=== PATIENT | male | born 1985 | race Asian ===

== ENCOUNTER 2022-02-21 14:04 | Observation (INO) ==
[2022-02-21 14:23] LABS: Appearance Urine Clear (Clear); Bilirubin Urine Negative (Negative); Blood Urine Negative (Negative); Color Urine Yellow; Glucose Urine UA Negative (Negative); Ketones Urine 2+ (Negative); Leukocyte Esterase Urine Negative (Negative); Nitrite Urine Negative (Negative); Protein Urine Negative (Negative); Specific Gravity Urine 1.023 (1.000-1.030); Urobilinogen Urine Negative (Negative)
[2022-02-21 16:56] LABS: Basophils # (auto) 0.02 K/uL (0-0.2); Basophils % (auto) 0.3 %; Eosinophils # (auto) 0.01 K/uL (0-0.50); Eosinophils % (auto) 0.1 %; Hematocrit (blood only) 45.6 % (40.1-51.0); Hemoglobin 15.1 g/dl (14.0-18.0); Immature Granulocytes # (auto) 0.01 K/uL (0.00-0.02); Immature Granulocytes % (auto) 0.1 %; Lymphocytes # (auto) 1.93 K/uL (1.2-3.4); Lymphocytes % (auto) 25.5 %; Mean Corpuscular Hemoglobin 28.5 pg (25.0-34.0); Mean Corpuscular Hgb Conc 33.1 g/dL (32.0-36.0); Mean Corpuscular Volume 86.2 fL (80.0-100.0); Mean Platelet Volume 9.4 fL (9.4-12.4); Monocytes # (auto) 0.52 K/uL (0.24-0.82); Monocytes % (auto) 6.9 %; Neutrophils # (auto) 5.08 K/uL (1.4-6.5); Neutrophils % (auto) 67.1 %; Platelet Count 240 K/uL (130-400); RDW Coefficient of Variation 13.4 % (11.5-14.5); RDW Standard Deviation 42.3 fL (36.4-46.3); Red Blood Count 5.29 M/uL (4.63-6.08); White Blood Count 7.57 K/ul (4.8-10.8)
--- NOTE | 2022-02-21 17:08 | Emergency Department Note ---
Impression & Plan Right sided abdominal pain, Acute appendicitis, Fever ED Provider Note NAME: SABA CM AGE: 37 SEX: M : 1985 ARRIVES VIA: Walk-In INFORMANT: [Patient] ED PROVIDER(S): [Rajan Sotelo MD] CHIEF COMPLAINT: Abdominal pain HISTORY OF PRESENT ILLNESS: The patient is a 37-year-old male who presents to the ER with complaints of 3 days of right-sided abdominal pain. The pain has waxed and waned. The pain has been a 6 or 7 on a scale of 1-10. He has had some low-grade fever. He has been using Tylenol. He felt some numbness in his hands at 1 point and also some burning to urinate today. There has been no pain radiation. No cough or congestion. No abdominal trauma. He has never had any operations on his abdomen. REVIEW OF SYSTEMS: See HPI for pertinent positives and negatives. A total of ten systems were reviewed and were otherwise negative. PMHx/PSHx: See Below SOCIAL HISTORY: See Below. PHYSICAL EXAM: GENERAL: Patient is in no acute distress. HEENT: No acute trauma, normocephalic atraumatic, mucous membranes moist, no nasal congestion, no scleral icterus. NECK: No stridor, no adenopathy, no meningismus, trachea is midline. LUNGS: Clear to auscultation bilaterally, no wheeze, no rhonchi, breath sounds equal. HEART: Mildly tachycardic, regular rhythm, no murmurs. ABDOMEN: Soft, moderately tender in the right lower quadrant, bowel sounds positive. EXTREMITIES: No cyanosis or edema, full range of motion of all the joints without pain or difficulty, no signs for acute trauma. NEUROLOGIC: Oriented x 3, no acute motor or sensory deficits, no focal weakness. SKIN: No rash, no jaundice, no diaphoresis. Back: No flank discomfort to percussion. DIFFERENTIAL DIAGNOSIS: Appendicitis, testicular torsion, diverticulitis, UTI, obstruction, mesenteric ischemia, aortic pathology, inflammatory bowel disease, renal colic, PUD, pancreatitis, biliary pathology, hernia, volvulus, constipation, as well as other pathologies. EMERGENCY DEPARTMENT COURSE/PROCEDURES: MEDICAL DECISION MAKING: There is no leukocytosis or concerning anemia. There is a normal platelet count. Sodium slightly low at 134 but not in need of emergent correction. There was no renal failure. No concerning liver enzyme elevation. No pancreatitis. Urinalysis showed some ketones, no infection. COVID test returned negative. Abdominal and pelvis CT showed acute appendicitis without perforation. On exam, patient was tender in the right lower quadrant. The patient received IV saline, IV Toradol, IV Tylenol. I spoke with the patient about his findings. I spoke with case management. The on-call surgeon was consulted, Dr. Brito. The patient will likely undergo an appendectomy in the very near future. Past Med/Surg History Medical History Chronic back pain Hyperlipidemia Surgical History Ganglion cyst of wrist (~1997) H/O tooth extraction Family History Mother Hypertension Social History Smoking Status: Unknown if ever smoked Second Hand Exposure: No; Hx Alcohol Use: No Hx Substance Use: No Preferred Language: Chinese Communication Ability: Effective Visual Impairment: No Limitations Hearing Ability: Normal marital status: Current Living Situation: Spouse and Family current occupational status: employed Feels Safe at Home: Yes Childhood Exposure to Second-Hand Smoke: No caffeine: No Dental Care, Regularly: Yes Physical Activity Frequency: 3-4 Times per Week Physical Activity Frequency Comment: walk Seatbelt Use: always Sunscreen Use: Yes Do you think of yourself as: straight/heterosexual Allergies Allergies Allergy/AdvReac Type Severity Reaction Status Date / Time No Known Allergies Allergy Verified 02/21/22 19:01 Home Meds Home Medications Medication Instructions Recorded Confirmed Hair Loss Liquid 1 applic topical DIRECTED 02/21/22 02/21/22 Hair Loss Vitamin 1 tab PO DIRECTED 02/21/22 02/21/22 Results & Data (ED) Vital Signs Vital Signs - 24 hr 02/21/22 14:10 02/21/22 18:29 02/21/22 20:58 Temperature 38.6 C H 37 C Temperature Source Oral Oral Pulse Rate 123 H Pulse Rate [Right Finger] 99 H 78 Pulse Rhythm [Right Finger] Regular Pulse Strength [Right Finger] Normal Respiratory Rate 18 16 18 Respiratory Effort / Characteristics Non-Labored Non-Labored Spontaneous Respiratory Depth Normal Normal Respiratory Pattern Regular Blood Pressure 135/75 Blood Pressure [Right Arm] 125/80 125/86 Blood Pressure Mean 95 Blood Pressure Mean [Right Arm] 95 99 Blood Pressure Position [Right Arm] Sitting Pulse Oximetry 96 98 98 Oxygen Delivery Method Room Air Room Air Sepsis Recent Fever Within 48 Hours No Sepsis New/Unexplained Change in Mental Status N/A Sepsis Action Taken by Nursing No Action Required Home Medications Current Medication List: was personally reviewed by me Laboratory Data Attestation: I reviewed the patient's lab results. Result diagrams: 02/21/22 16:43 02/21/22 16:43 Lab Results 02/21/22 02/21/22 02/21/22 Range/Units 14:15 16:43 16:43 WBC 7.57 (4.8-10.8) K/ul RBC 5.29 (4.63-6.08) M/uL Hgb 15.1 (14.0-18.0) g/dl Hct 45.6 (40.1-51.0) % MCV 86.2 (80.0-100.0) fL MCH 28.5 (25.0-34.0) pg MCHC 33.1 (32.0-36.0) g/dL RDW Std Deviation 42.3 (36.4-46.3) fL RDW Coeff of Aby 13.4 (11.5-14.5) % Plt Count 240 (130-400) K/uL MPV 9.4 (9.4-12.4) fL Immature Gran % (Auto) 0.1 % Neut % (Auto) 67.1 % Lymph % (Auto) 25.5 % Park % (Auto) 6.9 % Eos % (Auto) 0.1 % Baso % (Auto) 0.3 % Neut # (Auto) 5.08 (1.4-6.5) K/uL Lymph # (Auto) 1.93 (1.2-3.4) K/uL Park # (Auto) 0.52 (0.24-0.82) K/uL Eos # (Auto) 0.01 (0-0.50) K/uL Baso # (Auto) 0.02 (0-0.2) K/uL Immature Gran # (Auto) 0.01 (0.00-0.02) K/uL Sodium 134 L (136-145) mmol/L Potassium 4.1 (3.5-5.1) mmol/L Chloride 99 (98-107) mmol/L Carbon Dioxide 27 (21-32) mmol/L Anion Gap 8 (3-11) BUN 11 (6-23) mg/dl Creatinine 1.07 (0.6-1.4) mg/dl Est Cr Clr Drug Dosing 107.4 ml/min Est GFR ( Amer) 103.0 ml/min Est GFR (Non-Af Amer) 88.8 ml/min BUN/Creatinine Ratio 10.3 (10-20) Glucose 91 (70-99(Fasting)) mg/dl Calcium 9.6 (8.5-10.1) mg/dl Total Bilirubin 0.5 (0.2-1.0) mg/dl AST 23 (13-39) U/L ALT 20 (7-52) U/L Alkaline Phosphatase 65 (34-104) U/L Total Protein 8.9 H (6.0-8.3) gm/dl Albumin 4.8 (3.4-5.0) gm/dl Globulin 4.1 H (2.5-4.0) gm/dl Albumin/Globulin Ratio 1.2 (0.9-2) Lipase 32 (11-82) U/L Urine Color Yellow Urine Appearance Clear (Clear) Urine pH 7.0 (4.5-7.5) Ur Specific [place] 1.023 (1.000-1.030) Urine Protein Negative (Negative) Urine Glucose (UA) Negative (Negative) Urine Ketones 2+ H (Negative) Urine Blood Negative (Negative) Urine Nitrite Negative (Negative) Urine Bilirubin Negative (Negative) Urine Urobilinogen Negative (Negative) Ur Leukocyte Esterase Negative (Negative) SARS-CoV-2, RNA, NAAT (NEGATIVE) 02/21/22 Range/Units 18:31 WBC (4.8-10.8) K/ul RBC (4.63-6.08) M/uL Hgb (14.0-18.0) g/dl Hct (40.1-51.0) % MCV (80.0-100.0) fL MCH (25.0-34.0) pg MCHC (32.0-36.0) g/dL RDW Std Deviation (36.4-46.3) fL RDW Coeff of Aby (11.5-14.5) % Plt Count (130-400) K/uL MPV (9.4-12.4) fL Immature Gran % (Auto) % Neut % (Auto) % Lymph % (Auto) % Park % (Auto) % Eos % (Auto) % Baso % (Auto) % Neut # (Auto) (1.4-6.5) K/uL Lymph # (Auto) (1.2-3.4) K/uL Park # (Auto) (0.24-0.82) K/uL Eos # (Auto) (0-0.50) K/uL Baso # (Auto) (0-0.2) K/uL Immature Gran # (Auto) (0.00-0.02) K/uL Sodium (136-145) mmol/L Potassium (3.5-5.1) mmol/L Chloride (98-107) mmol/L Carbon Dioxide (21-32) mmol/L Anion Gap (3-11) BUN (6-23) mg/dl Creatinine (0.6-1.4) mg/dl Est Cr Clr Drug Dosing ml/min Est GFR ( Amer) ml/min Est GFR (Non-Af Amer) ml/min BUN/Creatinine Ratio (10-20) Glucose (70-99(Fasting)) mg/dl Calcium (8.5-10.1) mg/dl Total Bilirubin (0.2-1.0) mg/dl AST (13-39) U/L ALT (7-52) U/L Alkaline Phosphatase (34-104) U/L Total Protein (6.0-8.3) gm/dl Albumin (3.4-5.0) gm/dl Globulin (2.5-4.0) gm/dl Albumin/Globulin Ratio (0.9-2) Lipase (11-82) U/L Urine Color Urine Appearance (Clear) Urine pH (4.5-7.5) Ur Specific [place] (1.000-1.030) Urine Protein (Negative) Urine Glucose (UA) (Negative) Urine Ketones (Negative) Urine Blood (Negative) Urine Nitrite (Negative) Urine Bilirubin (Negative) Urine Urobilinogen (Negative) Ur Leukocyte Esterase (Negative) SARS-CoV-2, RNA, NAAT NEGATIVE (NEGATIVE) Administered Medications Discontinued Medications Acetaminophen (Acetaminophen 1000 Mg/100 Ml Iv) 1,000 mg IV NOW STA Stop: 02/21/22 18:25 Last Admin: 02/21/22 18:35 Dose: 1,000 mg Documented By: GHASSAN Sodium Chloride (Nss 1000ml) 1,000 mls @ 999 mls/hr IV .Q1H1M ONE Stop: 02/21/22 18:35 Last Infusion: 02/21/22 18:58 Dose: 0 mls/hr Documented By: Admin: 02/21/22 18:05 Dose: 999 mls/hr Documented By: CRYSTALW Cefoxitin Sodium (Mefoxin) 2,000 mg in 60 mls @ 100 mls/hr IV NOW STA Stop: 02/21/22 19:39 Last Infusion: 02/21/22 20:42 Dose: 0 mls/hr Documented By: Admin: 02/21/22 19:49 Dose: 100 mls/hr Documented By: MACARIO Ioversol (Optiray 300 100ml) 87 ml IV ONCE ONE Stop: 02/21/22 17:53 Last Admin: 02/21/22 17:52 Dose: 87 ml Documented By: VALORIE Ketorolac Tromethamine (Ketorolac Tromethamine 15 Mg/Ml Vial) 15 mg IV NOW STA Stop: 02/21/22 17:54 Last Admin: 02/21/22 18:05 Dose: 15 mg Documented By: CRYSTALW Imaging Data Radiologist's Impression: Abdomen/Pelvis CT 02/21/22 15:[address] WITH IV CONTRAST CT DOSE: 394.61 mGy.cm HISTORY: Acute right lower quadrant abdominal pain R lower abd pain TECHNIQUE: Multiaxial CT images of the abdomen and pelvis were performed follow ing the IV administration of 87 cc of Optiray, A dose lowering technique was utilized adhering to the principles of ALARA. COMPARISON STUDY: None. FINDINGS: Imaged inferior cardiac chambers appear unremarkable. Subcentimeter calcified granulomata of the basal left lower lobe. There is no pneumatosis or pneumoperitoneum. The spleen, pancreas, contracted gallbladder and adrenal glands appear unremarkable. The liver is also within normal limits. Patency of the hepatic and portal veins. Unremarkable kidneys. No hydronephrosis. Prostate and partially decompressed urinary bladder are within normal limits. Aorta and IVC are within normal limits. There is no lymphadenopathy. No bowel obstruction. Trace free fluid within the dependent pelvis. The appendix is dilated measuring up to 1.3 cm transversely demonstrating wall thickening with mucosal hyperemia. Periappendiceal inflammation with small amount of right lower quadrant free fluid. No drainable fluid collection. No acute fracture. Moderate intervertebral disc space narrowing at L5-S1 with posterior disc ost eophyte complex. IMPRESSION: 1. Acute appendicitis with reactive free fluid within the abdominal right lower quadrant and dependent pelvis. 2. No pneumoperitoneum or drainable fluid collection. ACT 112: Negative or not required by law. The above report was generated using voice recognition software. It may contain grammatical, syntax or spelling errors. Electronically signed by: Edgardo Magallon M.D. 02/21/2022 6:11 PM Discharge Plan Visit Data Chief Complaint: Abdominal Pain Stated Complaint: R ABDOMINAL PAIN, FEVER, BURNING IN EXTREMETIES ED Provider: Rajan Sotelo Discharge Problem: Right sided abdominal pain, Acute appendicitis, Fever Patient Disposition: Admitted As Inpatient Condition: Fair Discharge Instructions Interventions: ED Discharge Assessment Last Done: 02/21/22 21:28 Forms Stand Alone Forms: Room 8 Studio Prescriptions Prescriptions: No Action Hair Loss Liquid 1 applic topical DIRECTED Hair Loss Vitamin 1 tab PO DIRECTED Referrals Referrals: Steven Akbar DO [Primary Care Provider] -
[2022-02-21 17:30] LABS: Albumin Globulin Ratio 1.2 (0.9-2); Albumin Level 4.8 gm/dl (3.4-5.0); BUN Creatinine Ratio 10.3 (10-20); Bilirubin,Total 0.5 mg/dl (0.2-1.0); Calcium 9.6 mg/dl (8.5-10.1); Creatinine Clr Calc Pharmacy 107.4 ml/min; Est GFR (Non-African American) 88.8 ml/min; Globulin 4.1 gm/dl (2.5-4.0); Potassium 4.1 mmol/L (3.5-5.1); Total Protein 8.9 gm/dl (6.0-8.3)
[2022-02-21] MEDS ORDERED: SODIUM CHLORIDE 0.9% 1000ML 1,000 ML IV ONE (17:35)
[2022-02-21] MEDS ORDERED: OPTIRAY 300 100mL IV ONE (17:52)
[2022-02-21] MEDS ORDERED: KETOROLAC TROMETHAMINE 15 MG/ML VIAL IV STA (17:53)
--- NOTE | 2022-02-21 18:12 | CT Scan Report ---
ABDOMEN AND PELVIS CT WITH IV CONTRAST CT DOSE: 394.61 mGy.cm HISTORY: Acute right lower quadrant abdominal pain R lower abd pain TECHNIQUE: Multiaxial CT images of the abdomen and pelvis were performed following the IV administrat ion of 87 cc of Optiray, A dose lowering technique was utilized adhering to the principles of ALARA. COMPARISON STUDY: None. FINDINGS: Imaged inferior cardiac chambers appear unremarkable. Subcentimeter calcified granulomata of the basa l left lower lobe. There is no pneumatosis or pneumoperitoneum. The spleen, pancreas, contracted gall bladder and adrenal glands appear unremarkable. The liver is also within normal limits. Patency of th e hepatic and portal veins. Unremarkable kidneys. No hydronephrosis. Prostate and partially decompressed urinary bladder are with in normal limits. Aorta and IVC are within normal limits. There is no lymphadenopathy. No bowel obstruction. Trace free fluid within the dependent pelvis. The appendix is dilated measuring up to 1.3 cm transversely demonstrating wall thickening with mucosal hyperemia. Periappendiceal infl ammation with small amount of right lower quadrant free fluid. No drainable fluid collection. No acut e fracture. Moderate intervertebral disc space narrowing at L5-S1 with posterior disc osteophyte comp jess. IMPRESSION: 1. Acute appendicitis with reactive free fluid within the abdominal right lower quadrant and dependen t pelvis. 2. No pneumoperitoneum or drainable fluid collection. ACT 112: Negative or not required by law. The above report was generated using voice recognition software. It may contain grammatical, syntax o r spelling errors. Electronically signed by: Edgardo Magallon M.D. 02/21/2022 6:11 PM
[2022-02-21] MEDS ORDERED: ACETAMINOPHEN 1000 MG/100 ML IV IV STA (18:24)
--- NOTE | 2022-02-21 18:56 | Surgery Consultation ---
Date of Consultation February 21, 2022 Assessment & Plan (1) Acute appendicitis: pt is a 37 year-old male who presents to ER with RLQ pain, IMP: acute appendicitis, plan, I recommend to do laparoscopic appendectomy, possible open, D/W benefits, risks and alternatives of the surgery, the risks - infection, bleeding, abscess, injury other organs, incisional hernia, pt understood, he agrees with surgery, he signed informed consent, I answered all questions, pre-op antibiotic, pt ate food at 2PM today, per-anesthesiologist wait other 4 hours, History of Present Illness Reason for Consultation: appendicitis Requesting Physician: Rajan Sotelo MD History of Present Illness CHIEF COMPLAINT: Abdominal pain HISTORY OF PRESENT ILLNESS: The patient is a 37-year-old male who presents to the ER with complaints of 3 days of right-sided abdominal pain. The pain has waxed and waned. The pain has been a 6 or 7 on a scale of 1-10. He has had some low-grade fever. He has been using Tylenol. He felt some numbness in his hands at 1 point and also some burning to urinate today. There has been no pain radiation. No cough or congestion. No abdominal trauma. He has never had any operations on his abdomen. I ( Johnnie Brito MD ) got a call consult acute appendicitis, I reviewed pt's H/P, labs, Ct scan with pt, pt is still have RLQ pain, REVIEW OF SYSTEMS: See HPI for pertinent positives and negatives. A total of ten systems were reviewed and were otherwise negative. PMHx/PSHx: See Below SOCIAL HISTORY: See Below. Allergies Allergy/AdvReac Type Severity Reaction Status Date / Time No Known Allergies Allergy Verified 02/21/22 19:01 Home Medications Medication Instructions Recorded Confirmed Type Hair Loss Liquid 1 applic topical DIRECTED 02/21/22 02/21/22 History Hair Loss Vitamin 1 tab PO DIRECTED 02/21/22 02/21/22 History Patient History Medical History (Updated 02/21/22 @ 19:00 by Johnnie Brito MD) Chronic back pain Hyperlipidemia Surgical History Ganglion cyst of wrist (~1997) H/O tooth extraction Family History Mother Hypertension Social History Smoking Status: Unknown if ever smoked Second Hand Exposure: No; Hx Alcohol Use: No Hx Substance Use: No Preferred Language: Khmer Communication Ability: Effective Visual Impairment: No Limitations Hearing Ability: Normal marital status: Current Living Situation: Spouse and Family current occupational status: employed Feels Safe at Home: Yes Childhood Exposure to Second-Hand Smoke: No caffeine: No Dental Care, Regularly: Yes Physical Activity Frequency: 3-4 Times per Week Physical Activity Frequency Comment: walk Seatbelt Use: always Sunscreen Use: Yes Do you think of yourself as: straight/heterosexual Review of Systems Constitutional: as per Subjective / HPI (obesity) Eyes: as per Subjective / HPI Respiratory: as per Subjective / HPI Cardiovascular: as per Subjective / HPI Additional Comments: hyperlipidemia Gastrointestinal: as per Subjective / HPI Genitourinary: + as per Subjective / HPI Musculoskeletal: chronic back pain Neurologic: as per Subjective / HPI Psychiatric: as per Subjective / HPI Endocrine: as per Subjective / HPI Hematologic / Lymphatic: as per Subjective / HPI Physical Exam Constitutional: WD/WN, vitals as above Eyes: PERRL, conjunctivae normal, anicteric sclerae Neck: trachea midline, no thyromegaly Respiratory: normal respiratory effort, lungs clear to auscultation Cardiovascular: RRR, no murmur, no edema Gastrointestinal (Abdomen): soft, tenderness at RLQ , no rebound pain, no distend, BS +, Neurologic: patellar DTR's 2+ bilat, sensation intact Psychiatric: A+Ox3, euthymic affect Results & Data ([facility]) Vital Signs (Past 12 Hours) Vital Signs Temp Pulse Pulse Resp BP BP Pulse Ox 02/21/22 18:29 99 H 16 125/80 98 02/21/22 14:10 38.6 C H 123 H 18 135/75 96 O2 Del Method 02/21/22 18:29 02/21/22 14:10 Room Air Laboratory Results Abnormal lab results 02/21/22 02/21/22 Range/Units 14:15 16:43 Sodium 134 L (136-145) mmol/L Total Protein 8.9 H (6.0-8.3) gm/dl Globulin 4.1 H (2.5-4.0) gm/dl Urine Ketones 2+ H (Negative) Diagnostic Findings ABDOMEN AND PELVIS CT WITH IV CONTRAST CT DOSE: 394.61 mGy.cm HISTORY: Acute right lower quadrant abdominal pain R lower abd pain TECHNIQUE: Multiaxial CT images of the abdomen and pelvis were performed following the IV administration of 87 cc of Optiray, A dose lowering technique was utilized adhering to the principles of ALARA. COMPARISON STUDY: None. FINDINGS: Imaged inferior cardiac chambers appear unremarkable. Subcentimeter calcified granulomata of the basal left lower lobe. There is no pneumatosis or pneumoperitoneum. The spleen, pancreas, contracted gallbladder and adrenal glands appear unremarkable. The liver is also within normal limits. Patency of the hepatic and portal veins. Unremarkable kidneys. No hydronephrosis. Prostate and partially decompressed urinary bladder are within normal limits. Aorta and IVC are within normal limits. There is no lymphadenopathy. No bowel obstruction. Trace free fluid within the dependent pelvis. The appendix is dilated measuring up to 1.3 cm transversely demonstrating wall thickening with mucosal hyperemia. Periappendiceal inflammation with small amount of right lower quadrant free fluid. No drainable fluid collection. No acute fracture. Moderate intervertebral disc space narrowing at L5-S1 with posterior disc osteophyte complex. IMPRESSION: 1. Acute appendicitis with reactive free fluid within the abdominal right lower quadrant and dependent pelvis. 2. No pneumoperitoneum or drainable fluid collection. ACT 112: Negative or not required by law.
[2022-02-21] MEDS ORDERED: cefOXitin 2,000 MG/60 ML BAG IV STA (19:04)
--- NOTE | 2022-02-21 19:04 | History & Physical Bridge Note ---
Date of Service February 21, 2022 History & Physical Bridge Note I have examined the patient, reviewed the History & Physical and in the interval since the performance of the History & Physical I have noted the following changes of clinical significance: no changes noted
[2022-02-21] MEDS ORDERED: BACITRACIN OINT 15 GM TUBE ONE (21:32)
[2022-02-21] MEDS ORDERED: LIDOCAINE 1% LOCAL 20 ML VIAL ONE (21:32)
[2022-02-21] MEDS ORDERED: BUPIVACAINE 0.5 % 5 MG/1 ML MPF 30ML VIAL ONE (21:32)
[2022-02-21] MEDS ORDERED: SUCCINYLCHOLINE 100MG/5ML SYR IV ONE (21:38)
[2022-02-21] MEDS ORDERED: PROPOFOL IV EMULSION 10 MG/ML 20 ML VIAL IV ONE (21:38)
[2022-02-21] MEDS ORDERED: MIDAZOLAM HCL 1 MG/ML 2ML VIAL ONE (21:38)
[2022-02-21] MEDS ORDERED: fentaNYL citrate 100 MCG/2 ML VIAL ONE ×3 (21:39→23:16)
--- NOTE | 2022-02-21 21:56 | Anesthesiology Consultation ---
Date of Service February 21, 2022 Assessment & Plan ASA ASA1E Proposed Anesthesia Anesthesia Type: General Risk / Benefits Reviewed With: PT / POA / Parent / Guardian, Accepts Plan and Informed Consent Obtained History Surgery Operation Date: 02/21/22 22:00 Proposed Procedures p Laparoscopic Appendectomy - Johnnie Brito MD Height/Weight Height: 5 ft 10 in Weight: 89.4 kg Allergies Allergy/AdvReac Type Severity Reaction Status Date / Time No Known Allergies Allergy Verified 02/21/22 19:01 Medications Home Medications Medication Instructions Recorded Confirmed Last Taken Hair Loss Liquid 1 applic topical DIRECTED 02/21/22 02/21/22 Unknown Hair Loss Vitamin 1 tab PO DIRECTED 02/21/22 02/21/22 Unknown NPO Date Last Intake of Fluids: 02/21/22 Time Last Intake of Fluids: 14:00 Date Last Intake of Solids: 02/21/22 Time Last Intake of Solids: 14:00 Past Medical History Medical History Chronic back pain Hyperlipidemia Exercise / Class Metabolic Activity 1 > 8 Run/Swim/Ski/Tennis Past Family History Family History Mother Hypertension Past Surgical History Surgical History Ganglion cyst of wrist (~1997) H/O tooth extraction Past Anesthesia History No Hx of Anesthesia Complications and No Family Hx of Anesthesia Complications History of PONV No Hx of PONV and No Hx of Motion Sickness Social History Smoking Status: Unknown if ever smoked Hx Alcohol Use: No Hx Substance Use: No Review of Systems denies fever/cough/ colds/ chest pain/ SOB/ KELLEY denies KELLEY Physical Exam Vital Signs Last Vital Signs Temp 37 C 02/21/22 20:58 Pulse 78 02/21/22 20:58 Resp 18 02/21/22 20:58 BP 125/86 02/21/22 20:58 Pulse Ox 98 02/21/22 20:58 O2 Del Method 02/21/22 20:58 ENMT Mouth: no TMJ abnormality and no dentition abnormality Thyromental Distance: > or= 3.5 Finger Breadths Mallampati Class: II Neck neck extension not limited Respiratory normal respiratory effort; no respiratory distress Auscultation: lungs clear to auscultation bilaterally Cardiovascular Rate/Rhythm: regular rate and regular rhythm Neurologic moves all extremities Psychiatric Orientation: alert and oriented x 3 Testing Laboratory Results 02/21/22 16:43 02/21/22 16:43 Urine Color Yellow 02/21/22 14:15 Urine Appearance Clear (Clear) 02/21/22 14:15 Urine pH 7.0 (4.5-7.5) 02/21/22 14:15 Ur Specific [place] 1.023 (1.000-1.030) 02/21/22 14:15 Urine Protein Negative (Negative) 02/21/22 14:15 Urine Glucose (UA) Negative (Negative) 02/21/22 14:15 Urine Ketones 2+ (Negative) H 02/21/22 14:15 Urine Nitrite Negative (Negative) 02/21/22 14:15 Ur Leukocyte Esterase Negative (Negative) 02/21/22 14:15
[2022-02-21] MEDS ORDERED: ATROPINE SULFATE 0.1 MG/ML 10ML SYR IV PRN (21:59)
[2022-02-21] MEDS ORDERED: fentaNYL citrate 100 MCG/2 ML VIAL IV PRN (21:59)
[2022-02-21] MEDS ORDERED: ePHEDrine sulfate 50 MG/ML AMP IV PRN (21:59)
[2022-02-21] MEDS ORDERED: HYDROmorphone INJ 2 MG/ML SYR/VIAL IV PRN (21:59)
[2022-02-21] MEDS ORDERED: ONDANSETRON INJ 2 MG/ML 2 ML VIAL IV PRN ×2 (21:59→22:17)
[2022-02-21] MEDS ORDERED: HYDROmorphone INJ 0.5 MG/0.5 ML SYR IV PRN (22:20)
[2022-02-21] MEDS ORDERED: ONDANSETRON INJ 2 MG/ML 2 ML VIAL ONE (22:26)
[2022-02-21] MEDS ORDERED: DEXAMETHASONE SOD INJ 4 MG/ML VIAL ONE (22:26)
[2022-02-21] MEDS ORDERED: KETOROLAC 30 MG/ML VIAL ONE (22:26)
--- NOTE | 2022-02-21 23:45 | Post Operative Brief Note ---
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
--- NOTE | 2022-02-22 00:21 | Anesthesiology Progress Note ---
Date of Service February 22, 2022 Anesthesia Post Procedure Vital Signs Vital Signs: Temp Pulse Pulse Pulse Resp BP BP 02/22/22 00:15 68 12 107/56 L 02/22/22 00:05 78 18 119/69 02/21/22 23:58 36.6 C 88 16 123/80 02/21/22 20:58 37 C 78 18 125/86 02/21/22 18:29 99 H 16 125/80 02/21/22 14:10 38.6 C H 123 H 18 135/75 Pulse Ox O2 Del Method 02/22/22 00:15 96 Room Air 02/22/22 00:05 97 Room Air 02/21/22 23:58 97 Room Air 02/21/22 20:58 98 Room Air 02/21/22 18:29 98 02/21/22 14:10 96 Room Air Transfer of Care Handoff Completed per policy Notes Mental Status: alert / awake / arousable and participated in evaluation Patient Amnestic to Procedure: Yes Nausea / Vomiting: adequately controlled Pain: adequately controlled Airway Patency, RR, SpO2: stable & adequate BP & HR: stable & adequate Hydration State: stable & adequate Anesthetic Complications: no major complications apparent and Pt Satisfied with anesthetic care
[2022-02-22] MEDS: LACTATED RINGER'S 1,000 ML IV SCH ×2 (00:59→12:46)
[2022-02-22] MEDS: oxyCODONE/ACETAMINOPHEN 5mg/325mg TAB PO PRN ×2 (01:50→09:22)
--- NOTE | 2022-02-22 05:20 | Operative Report (OR) ---
DATE OF PROCEDURE: 02/21/2022 PREOPERATIVE DIAGNOSIS: Acute appendicitis. POSTOPERATIVE DIAGNOSIS: Acute appendicitis with gangrene appendix. OPERATION: Laparoscopic appendectomy. SURGEON: Johnnie Brito MD. ANESTHESIA: General. ESTIMATED BLOOD LOSS: About 10 mL FINDINGS: Acute appendicitis, gangrene appendix. COMPLICATIONS: None. INDICATIONS FOR THE PROCEDURE: This is a 37-year-old gentleman who presented to ED with acute abdomi nal pain. The patient had a CT scan diagnosis of acute appendicitis. I recommended to do laparoscop ic appendectomy, possible open. I did talk to the patient about the benefit, risk, alternate procedu re. I indicated the risks may include, but not limited to, such as bleeding, infection, abscess, inj ury to other organs, incisional hernia, bowel obstruction. The patient understands. He signed [employer] consent and I answered all questions. DETAILS OF PROCEDURE: After we identified the patient and verified the procedure, we brought the pat ient to the OR, put the patient in the supine position on the OR table. The patient received SCD on bilateral legs to prevent DVT. Also, the patient received 2 grams cefoxitin IV for prophylactic anti biotic. The patient received general anesthesia without difficulty. The abdomen was prepped and gene ped in routine sterile fashion. After timeout, I injected local anesthesia by using 1% lidocaine mix ed with 0.5% Marcaine just above the umbilicus. Then I made a small incision just above umbilicus, o pened the fascia, opened peritoneum under direct vision, put a Eli trocar in, connected to CO2 to create pneumoperitoneum, flow rate at 6 liters per minute, pressure not more than 14 mmHg. Once we got a nice pneumoperitoneum, we put a camera in, looked around the abdomen, it shows normal f inding on the small bowel, large bowel. At this moment, we put another two 5 mm trocars on the left lower quadrant area., then we found out the patient had acute appendicitis with gangrene appendix. A ppendix was located posterior to the cecum. At this moment, we mobilized the appendix, we used the H armonic to take down the appendiceal, and then used a 45 mm Endo ROMAN stapler for transection on the b ase of appendix, rechecked the staple line, intact. No leak, no active bleeding. Then, we removed t he appendix through the catch bag. Then, we reinserted the Eli trocar in, connected to CO2 to create pneumoperitoneum, again looked a round the abdomen. Mild fluid around the pelvic area, we suctioned out; rechecked the staple line, i ntact and no leak, no active bleeding. Then, we removed all trocars under direct vision. No active bleeding from the trocar site. Pneumoperitoneum was released. Then I closed the umbilical incision fascial layer by using 0 Vicryl [id number] x2, closed subcutaneous layer by using 2-0 Vicryl int erruptedly, closed skin by using 4-0 Vicryl continuous running, closed another two 5 mm trocars site skin only by using 4-0 Vicryl. Then, we put the dressing on. The patient tolerated the procedure we ll. All instrument, needle and sponge counts were correct x2 at the end of the case. The patient wa s transferred to recovery room in stable condition. The specimen was sent to pathology. After the p christina, I did talk to patient's family member about the OR finding and the procedure we did, they u nderstand. I answered all questions. Job ID: [id number]
[2022-02-22 05:49] LABS: Basophils # (auto) 0.01 K/uL (0-0.2); Basophils % (auto) 0.1 %; Hematocrit (blood only) 41.2 % (40.1-51.0); Hemoglobin 13.7 g/dl (14.0-18.0); Immature Granulocytes # (auto) 0.01 K/uL (0.00-0.02); Immature Granulocytes % (auto) 0.1 %; Lymphocytes # (auto) 1.58 K/uL (1.2-3.4); Lymphocytes % (auto) 18.2 %; Mean Corpuscular Hemoglobin 28.7 pg (25.0-34.0); Mean Corpuscular Hgb Conc 33.3 g/dL (32.0-36.0); Mean Corpuscular Volume 86.4 fL (80.0-100.0); Mean Platelet Volume 9.4 fL (9.4-12.4); Monocytes # (auto) 0.19 K/uL (0.24-0.82); Monocytes % (auto) 2.2 %; Neutrophils # (auto) 6.89 K/uL (1.4-6.5); Neutrophils % (auto) 79.4 %; Platelet Count 221 K/uL (130-400); RDW Coefficient of Variation 13.3 % (11.5-14.5); RDW Standard Deviation 41.9 fL (36.4-46.3); Red Blood Count 4.77 M/uL (4.63-6.08); White Blood Count 8.68 K/ul (4.8-10.8)
[2022-02-22 06:20] LABS: Albumin Globulin Ratio 1.2 (0.9-2); Albumin Level 4.1 gm/dl (3.4-5.0); BUN Creatinine Ratio 10.4 (10-20); Bilirubin,Total 0.5 mg/dl (0.2-1.0); Calcium 8.7 mg/dl (8.5-10.1); Est GFR (African American) 117.4 ml/min; Est GFR (Non-African American) 101.3 ml/min; Globulin 3.3 gm/dl (2.5-4.0); Potassium 4.2 mmol/L (3.5-5.1); Total Protein 7.4 gm/dl (6.0-8.3)
--- NOTE | 2022-02-22 11:21 | Surgery Progress Note ---
Date of Service February 22, 2022 Assessment & Plan (1) Acute appendicitis: Plan: pt is a 37 year-old male who presents to ER with RLQ pain, IMP: acute appendicitis, plan, I recommend to do laparoscopic appendectomy, possible open, D/W benefits, risks and alternatives of the surgery, the risks - infection, bleeding, abscess, injury other organs, incisional hernia, pt understood, he agrees with surgery, he signed informed consent, I answered all questions, pre-op antibiotic, pt ate food at 2PM today, per-anesthesiologist wait other 4 hours, 02/22/2022 11:19AM F/U S/P lap appy, POD 1, I update about OR finding and the procedure pt had, I answered all questions, pt is doing fine, tolerated diet, no fever, discharge home today, post-op instruction was given, F/U 2 weeks, Admission and Anticipated Discharge Date Admission Date: February 21, 2022 Subjective F/U S/P laparoscopic appendectomy, POD 1 pt is doing fine, no significant abdominal pain, tolerated diet, no fever, Review of Systems Constitutional: as per Subjective / HPI (obesity) Eyes: as per Subjective / HPI Respiratory: as per Subjective / HPI Cardiovascular: as per Subjective / HPI Additional Comments: hyperlipidemia Gastrointestinal: as per Subjective / HPI Genitourinary: + as per Subjective / HPI Musculoskeletal: chronic back pain Neurologic: as per Subjective / HPI Psychiatric: as per Subjective / HPI Endocrine: as per Subjective / HPI Hematologic / Lymphatic: as per Subjective / HPI Physical Exam Constitutional: WD/WN, vitals as above Eyes: PERRL, conjunctivae normal, anicteric sclerae Neck: trachea midline, no thyromegaly Respiratory: normal respiratory effort, lungs clear to auscultation Cardiovascular: RRR, no murmur, no edema Gastrointestinal (Abdomen): soft, mild tenderness at incision site, no rebound pain, no distend, all incisions intact, no redness, BS +. Neurologic: patellar DTR's 2+ bilat, sensation intact Psychiatric: A+Ox3, euthymic affect Results & Data ([facility]) Vital Signs (Past 12 Hours) Vital Signs Temp Pulse Pulse Resp BP BP Pulse Ox 02/22/22 07:30 02/22/22 07:35 36.4 C L 52 L 14 105/66 97 02/22/22 02:45 36.6 C 55 L 16 117/76 98 02/22/22 01:45 36.6 C 55 L 18 126/81 98 02/22/22 01:18 36.3 C L 62 16 122/82 96 02/22/22 01:02 36.9 C 61 16 117/79 96 02/22/22 00:25 36.8 C 63 14 113/69 98 02/22/22 00:15 68 12 107/56 L 96 02/22/22 00:05 78 18 119/69 97 02/21/22 23:58 36.6 C 88 16 123/80 97 O2 Del Method 02/22/22 07:30 Room Air 02/22/22 07:35 Room Air 02/22/22 02:45 Room Air 02/22/22 01:45 Room Air 02/22/22 01:18 Room Air 02/22/22 01:02 Room Air 02/22/22 00:25 Room Air 02/22/22 00:15 Room Air 02/22/22 00:05 Room Air 02/21/22 23:58 Room Air Laboratory Results Abnormal lab results 02/21/22 02/21/22 02/22/22 Range/Units 14:15 16:43 05:21 Hgb 13.7 L (14.0-18.0) g/dl Neut # (Auto) 6.89 H (1.4-6.5) K/uL [place] # (Auto) 0.19 L (0.24-0.82) K/uL Sodium 134 L (136-145) mmol/L Glucose (70-99(Fasting)) mg/dl Total Protein 8.9 H (6.0-8.3) gm/dl Globulin 4.1 H (2.5-4.0) gm/dl Urine Ketones 2+ H (Negative) 02/22/22 Range/Units 05:21 Hgb (14.0-18.0) g/dl Neut # (Auto) (1.4-6.5) K/uL [place] # (Auto) (0.24-0.82) K/uL Sodium 133 L (136-145) mmol/L Glucose 165 H (70-99(Fasting)) mg/dl Total Protein (6.0-8.3) gm/dl Globulin (2.5-4.0) gm/dl Urine Ketones (Negative)
--- NOTE | 2022-02-22 11:54 | Discharge Summary (DS) ---
DATE OF ADMISSION: 02/21/2022. DATE OF DISCHARGE: 02/22/2022. ADMISSION DIAGNOSIS: Acute appendicitis. DISCHARGE DIAGNOSIS: Acute appendicitis. OPERATION: Laparoscopic appendectomy. SURGEON: Johnnie Brito MD. DETAILS OF DISCHARGE SUMMARY: This is a 37-year-old gentleman who presented to ED with acute abdomin al pain. The patient had a CT scan diagnosis of acute appendicitis. I took the patient to the OR. We did laparoscopic appendectomy and the patient tolerated the procedure well. After the procedure, the patient was transferred to recovery room and later on transferred to regular floor. The patient is doing fine. He tolerated the diet and no nausea, no vomiting, no fever. PHYSICAL EXAMINATION: VITAL SIGNS: Temperature is 36.4, respiratory rate is 14, heart rate 52, blood pressure 105/66, O2 s aturation 97% on room air. GENERAL: The patient is alert, awake, oriented x3. HEENT: Within normal limitation. NEUROLOGIC: Intact. NECK: No JVD. CHEST: Bilateral lung sounds clear. HEART: Normal S1 and S2. No murmur. ABDOMEN: Soft, nondistended, mild tenderness on the incision site. No rebound pain. All incisions intact. No redness. EXTREMITIES: No edema. The patient wanted to go home today. We gave the patient postoperative care instruction, the patient understands. I also updated information about the OR finding and the procedure we did again this mo rning. I answered all questions. The patient understands. I will follow up the patient in 2 weeks. Job ID: [id number]
== END 2022-02-22 14:26 | disposition home or self-care (01) ==
LOC: 3N 14:04 → ED 14:04